=== PATIENT | male | born 1970 | race Caucasian/White ===

== ENCOUNTER → 2018-03-21 08:54 | Outpatient (CLI) | payer BC, SELFPAY ==
[2018-03-22 09:54] LABS: PSA, Screening 1.2 ng/ml (0-2.5)
== END ==
PROVIDERS: PCP Family Medicine; Visit Provider Family Medicine
DX: N40.0 Benign prostatic hyperplasia without lower urinary tract symptoms (principal); N52.9 Male erectile dysfunction, unspecified; R35.1 Nocturia; Z12.5 Encounter for screening for malignant neoplasm of prostate
CPT/HCPCS: 36415; 84153

== ENCOUNTER 2020-05-31 06:10 | Day surgery (SDC) | payer BC, SELFPAY ==
[2020-05-31 06:25] VITALS: BP 133/96; PULSE 69; RESP 16; TEMP 36.1; O2SAT 100
--- NOTE | 2020-05-31 06:48 | COLE_ITS ---
Date of service: 05/31/20 Time of Service: 07:28 Colonoscopy Report Date of procedure: 05/31/20 Pre-op diagnosis general: Colon Cancer Screening Post-op diagnosis procedure note: same Procedure: Colonoscopy Surgeon: Pat Montejo Anesthesia proc note operative: other (General/ ASA 2/Jani Villagomez, ANNA) Estimated blood loss (mL): 0 Pathology: none sent Complications: None Disposition: same day Indications: 49 y/o male with history of hyperlipidemia presents for his first colonoscopy screening pre-op. He denies a family history of colon cancer. He reports that he has been having intolerance to foods recently, which cause bloating, abdominal discomfort and diarrhea. [place] [facility] [place]. Denies bloody or black tarry stools, abdominal pain or constipation. He denies constitutional symptoms. Prep: Miralax/Dulcolax Procedure Start Time: :28 Procedure End Time: 07:48 Retraction Time: 15 minutes Findings: Normal colon Procedure Description: After informed consent was obtained the patient was taken to the procedure room and placed in a left decubitous position. Monitors were applied and a time out was done. The patients name, date of , procedure, allergies to medications and metal in their body was reviewed. The patient was then sedated. Once sedated and comfortable a rectal exam was done. External exam was normal. Internal exam revealed a normal sphincter tone and no palpable masses. I was unable to feel the prostate. The scope was then introduced and retro-flexed. No internal hemorrhoids were identified. The scope was then advanced to the cecum without difficulty. The ileocecal valve and appendiceal orifice were identified. The prep was good. The scope was then slowly retracted over 15 minutes back into the rectum. There were no polyps and no diverticula. The scope was removed and the patient was woken up and taken back to Same day surgery in stable condition. The patient tolerated the procedure well and there were no immediate complications. Follow up: The patient should follow up in 10 years unless they develop changes in bowel habits or other new gastrointestinal complaints.
--- NOTE | 2020-05-31 06:49 | W.PM.DSUDISC ---
Discharge Plan Disposition Patient Disposition: HOME Condition: Good Discharge Details Reason For Visit: colonoscopy Attending Provider: Pat Montejo Primary Care Provider: Christian Maria Home Meds and New Rx's Prescriptions: Continued sildenafil [Viagra] 100 mg tablet 100 mg PO daily prn MDD 100mg 90 Days Qty: 45 RF: 3 Flonase Sensimist 27.5 mcg/actuation spray,suspension 2 spray NEEMA DAILY RF: 0 epinephrine [EpiPen 2-Brennan] 0.3 mg/0.3 mL auto-injector 0.3 mg IM ONCE Qty: 1 RF: 1 omega-3 fatty acids [Fish Oil Concentrate] 1,000 mg capsule 1,000 mg PO DAILY RF: 0 Discontinued polyethylene glycol 3350 17 gram/dose powder 238 g PO ONCE Qty: 238 RF: 0 bisacodyl [Dulcolax (bisacodyl)] 5 mg tablet,delayed release (DR/EC) 5 mg PO ONCE Qty: 4 RF: 0 Discharge Instructions Additional Instructions: Findings: Normal colonoscopy Follow up: 10 years Please call if you develop: fevers >101.5 Nausea or Vomiting Abdominal pain that is not transient DAY SURGERY UNIT POST ENDOSCOPY INSTRUCTIONS 1. Because there will be medication in your system for the next 24 hours, you may feel a little sleepy. Your coordination will be affected. Therefore: a. Do not drive or operate dangerous equipment for 24 hours. b. Do not drink alcohol beverages for 24 hours (not even beer). c. Plan to go home and rest for the day. 2. Generally there are no restrictions on your activity after a day or so has gone by, but you may feel a bit fatigued for a few days. 3 After you arrive home you may have a light meal and return to a normal diet as you can tolerate it without feeling sick to your stomach. 4. After surgery, you may feel pain or discomfort. This should be only transient, but if it persists please contact your doctor. 5. If there are any questions regarding the findings of your procedure, please feel free to contact your doctor. 6. If you are unable to contact your doctor with a problem, contact the hospital at [phone]. 7. Continue all your regular medications unless directed otherwise. I understand the above instructions and have no questions. Signature of Patient or Responsible Adult Escort Date/Time Name of Responsible Adult Escort Signature of Nurse Date/Time Activity:: Activity as Tolerated Diet:: As Tolerated Discharge Orders Discharge Orders: Discharge Order (Routine); Ordered 05/31/20 Ordered By: Pat Montejo
[2020-05-31] MEDS: Lactated Ringers 1,000 ML 80 ML IV (06:50)
[2020-05-31 08:39] VITALS: BP 138/91; PULSE 57; RESP 16; TEMP 36; O2SAT 100
== END 2020-05-31 09:00 | disposition home or self-care (01) ==
PROVIDERS: PCP Family Medicine; Visit Provider Surgery
PROC: 0DJD8ZZ Inspection of Lower Intestinal Tract, Via Natural or Artificial Opening Endoscopic (ICD-10-PCS; CPT 45378; principal; 2020-05-31 07:30)
DX: Z12.11 Encounter for screening for malignant neoplasm of colon (principal); E78.5 Hyperlipidemia, unspecified
CPT/HCPCS: 45378; J2704

== ENCOUNTER 2020-07-11 00:10 | Emergency (ER) | payer BC, SELFPAY ==
[2020-07-11 00:13] VITALS: BP 120/81; PULSE 81; RESP 16; TEMP 36.7; O2SAT 96
--- NOTE | 2020-07-11 00:14 | W.ED.GENAD ---
Discharge Plan Disposition Patient Disposition: HOME Condition: Good Discharge Details Clinical Impression: Dyspnea and respiratory abnormalities Primary Care Provider: Christian Maria ED Provider: Delfino Wilks Meds and New Rx's Prescriptions: Continued sildenafil [Viagra] 100 mg tablet 100 mg PO daily prn MDD 100mg 90 Days Qty: 45 RF: 3 Flonase Sensimist 27.5 mcg/actuation spray,suspension 2 spray NEEMA DAILY RF: 0 epinephrine [EpiPen 2-Brennan] 0.3 mg/0.3 mL auto-injector 0.3 mg IM ONCE Qty: 1 RF: 1 omega-3 fatty acids [Fish Oil Concentrate] 1,000 mg capsule 1,000 mg PO DAILY RF: 0 Discharge Instructions Additional Instructions: Symptoms described tonight sound related to sleep apnea or severe reflux. They do not sound related to asthma, infection, heart failure, blood clots. Vitals and oxygenation here normal. Exam normal. Talk to your girlfriend about snoring and breathing pattern at night. If abnormal consider sleep study. Follow up with PCP. Return to ED for chest pain, persistent trouble breathing, fainting Referrals: Christian Maria [Primary Care Provider] - Medical Decision Making This would not appear to be a life threat. Given the resolution of symptoms relatively quickly with normal vitals, pulse ox, exam here this does not fit something like CHF, KS, asthma, pneumonia, PTX, PE. Suspect more likely related to sleep apnea or reflux with laryngospasm. His use of alcohol tonight may have contributed to either. May also be possible he simple inhaled secretions while sleeping triggering a choking episode. Patient reassured. Will have him discuss with girlfriend his snoring/breathing patterns at night. If seems abnormal can follow up with PCP for possible sleep study. Return to ED for chest pain/pressure, persistent shortness of breath, fainting, leg pain/swelling. HPI General Mode of arrival: ambulatory. Date/Time Provider Initiated Documentation: 07/11/20 00:14. Limitations to Documentation: no limitations. Information obtained by: patient, RN notes reviewed and old records reviewed. HPI Narrative: Patient presents to ED after waking up gasping for air. He now feels fine. He has never done this previously. He did have a few drinks tonight. He does snore on a regular basis. He does not report being told he breathes funny at night. He denies having any chest pain or pressure. He has some post nasal drip. He denies cough, fever, wheezing. He has no leg pain or swelling. Related Data Home Medications Medication Instructions Recorded Confirmed sildenafil 100 mg tablet 100 mg PO daily prn 90 Days #45 01/29/19 07/11/20 tab MDD 100mg epinephrine 0.3 mg/0.3 mL 0.3 mg IM ONCE #1 syringe 02/16/20 07/11/20 injection, auto-injector fluticasone furoate 27.5 2 spray NEEMA DAILY ml 02/16/20 07/11/20 mcg/actuation nasal spray,suspension omega-3 fatty acids 1,000 mg 1,000 mg PO DAILY 05/07/20 07/11/20 capsule Previous Rx's Medication Instructions Recorded sildenafil 100 mg tablet 100 mg PO daily prn 90 Days #45 01/29/19 tab MDD 100mg epinephrine 0.3 mg/0.3 mL 0.3 mg IM ONCE #1 syringe 02/16/20 injection, auto-injector Allergies Allergy/AdvReac Type Severity Reaction Status Date / Time codeine AdvReac Intermediate Jittery, Unverified 07/11/20 00:16 insomnia Review of Systems Narrative: As documented in HPI otherwise negative as below. Const: no fever, chills, weakness Resp: no cough, pleuritic pain CV: no CP, diaphoresis, edema, syncope GI: no abdominal pain, nausea, vomiting, diarrhea Neuro: no headache, numbness, focal weakness, confusion COUNTS INCLUDE 234 BEDS AT THE [facility] Medical History History of depression Hx of hyperlipidemia Family History Father Lymphoma Melanoma Maternal Grandfather , 85 Colon cancer Mother No problems noted. Maternal Grandmother , 82 Diabetes Heart disease Asthma Sister Breast cancer Sister No problems noted. Sister No problems noted. Sister No problems noted. Paternal Grandfather , 38 No problems noted. Paternal Grandmother , 80 No problems noted. Son No problems noted. Daughter No problems noted. Brother No problems noted. Social History Smoking/Tobacco Use Status: Never Smoking risk assessment performed?: Yes Alcohol Intake: current Alcohol Intake frequency: 0-2 drinks per day Alcohol type: beer Drug use: Occasionally Substance use type: marijuana Details: alcohol: t-2, couple beers. marijuana: t-21, bowl Caregiver/Support person: No Household members: significant other Housing: house Communication Needs: None Do you need help understanding health information?: Rarely current occupation: TEACHER Pets and animals: No Sexually active: Yes Do you think of yourself as: straight/heterosexual Current gender identity: male What is your relationship status?: living with partner How often do you talk on the phone with friends or family?: once per week How often do you get together with friends or relatives?: three or more times per week How often do you attend roman catholic or zoroastrianism services?: 1-3 times per year Do you belong to any clubs or organized social groups?: yes Panel score (0-1 are the most socially isolated patients): 3 What type of physical activity do you participate in: decline to answer Duration: 15-30 minutes/day Frequency: 3-4 times per week Rosy/Buddhism: Gnosticism Special rosy needs: No Seatbelt use: always Helmet use: Yes Helmet use: always Drive intox or ride w/intox cdl company driver: No Do you feel safe at home: Yes Do you feel safe in your relationship?: Yes Exam Narrative Exam Narrative: Const: WDWN male in NAD. Neck: Supple. Trachea midline. Lungs: Normal respiratory effort. Lungs are clear. Cor: RRR without murmur/gallop. GI: Soft. NT/ND. No guarding or rebound. Neuro: A+O x 3. Normal speech, mentation, gait. Cranial nerves II - XII grossly intact. No gross motor or sensory deficit. Ext: No C/C/E. No calf tenderness. Skin: Warm and dry without rash.
== END 2020-07-11 00:45 | disposition home or self-care (01) ==
PROVIDERS: Emergency Provider Emergency Medicine; PCP Family Medicine
DX: R06.00 Dyspnea, unspecified (principal); R06.83 Snoring; R06.89 Other abnormalities of breathing
CPT/HCPCS: 99282; 99283

== ENCOUNTER 2021-03-07 10:40 | Outpatient (CLI) | payer BC, SELFPAY ==
[2021-03-07 12:56] LABS: ALT 37 U/L (16-63); AST 22 U/L (15-37); Albumin 4.1 g/dL (3.4-5.0); Alkaline Phosphatase 85 U/L (46-116); Anion Gap 9.8 mmol/L (3-11); BUN 11 mg/dL (7-18); Bilirubin, Total 0.9 mg/dL (0.2-1.0); CO2 28.2 mmol/L (21.0-32.0); Calculated LDL 168 mg/dL (<100); Chloride 103 mmol/L (98-107); Cholesterol 259 mg/dL (<200); Glucose 95 mg/dL (74-106); HDL Cholesterol 72 mg/dL (40-60); Potassium 4.2 mmol/L (3.5-5.1); Sodium 141 mmol/L (136-145); Total Protein 7.5 g/dL (6.4-8.2); Triglyceride 98 mg/dL (<150)
[2021-03-07 13:43] LABS: Hemoglobin A1C 5.5 % (<5.7)
[2021-03-07 16:57] LABS: PSA, Screening 1.2 ng/mL (0.0-3.5)
== END 2021-03-07 10:41 | disposition home or self-care (01) ==
LOC: LOS 10:41
PROVIDERS: PCP Nurse Practitioner Family; Visit Provider Nurse Practitioner Family
DX: I10 Essential (primary) hypertension (principal); Z13.1 Encounter for screening for diabetes mellitus; Z13.220 Encounter for screening for lipoid disorders; Z12.5 Encounter for screening for malignant neoplasm of prostate
CPT/HCPCS: 36415; 80053; 80061; 84153; 83036

== ENCOUNTER 2021-04-16 10:26 | Emergency (ER) | payer BC, SELFPAY ==
--- NOTE | 2021-04-16 10:30 | DI.RAD_ITS ---
Exam(s) XR ABDOMEN FLAT UPRIGHT EXAM: 2D digital imaging was performed. CLINICAL HISTORY: constipation, bloating. COMPARISON: No exams were available for comparison TECHNIQUE: Supine and uprightSupine and Lateral views of the abdomen was performed. FINDINGS: LUNG BASES: Clear. BOWEL GAS PATTERN: Nondistended. FREE AIR: None. CALCIFICATIONS: No radiopaque calcifications. OSSEOUS STRUCTURES: Normal for age. OTHER FINDINGS: None. IMPRESSION: No evidence of an acute abdomen. DATA REPOSITORY: RADIATION DOSE DELIVERED:
[2021-04-16 10:33] VITALS: BP 137/83; PULSE 74; RESP 14; TEMP 36.6; O2SAT 99
--- NOTE | 2021-04-16 10:44 | ED.GENADUL_ITS ---
Discharge Plan Disposition Patient Disposition: HOME Condition: Improving Discharge Details Clinical Impression: Constipation Primary Care Provider: Seth Razo ED Provider: Branden Ragland Home Meds and New Rx's Prescriptions: New docusate sodium [Colace] 100 mg capsule 200 mg PO QHS PRN (Reason: constipation) 7 Days Qty: 14 RF: 0 Continued sildenafil [Viagra] 100 mg tablet 100 mg PO daily prn MDD 100mg 90 Days Qty: 45 RF: 3 Flonase Sensimist 27.5 mcg/actuation spray,suspension 2 spray NEEMA DAILY RF: 0 epinephrine [EpiPen 2-Brennan] 0.3 mg/0.3 mL auto-injector 0.3 mg IM ONCE Qty: 1 RF: 1 lisinopril 5 mg tablet 5 mg PO DAILY Qty: 90 RF: 4 trazodone 50 mg tablet 50 mg PO QHS PRN (Reason: sleep) Qty: 60 RF: 2 omega-3 fatty acids [Fish Oil Concentrate] 1,000 mg capsule 1,000 mg PO DAILY RF: 0 Discharge Instructions Instructions: Constipation (ED) Additional Instructions: Acute concerns please take Colace 2 tablets at bedtime as needed for constipation up to 1 week. Continue high-fiber diet. Continue your regularly prescribed medications. Return to the ER if you develop fever, vomiting, or any other acute concerns. Medical Decision Making 50-year-old male presents with 10+ days of bloating, feeling constipated. He has not had any solid bowel movement for that timeframe. No fever. No vomiting. Patient's vital signs are unremarkable. Rectal examination without mass or stool ball. Patient referred for x-ray which reveals large amount of stool retained, no evidence of obstruction. He was given Fleet enema with scant production of stool. Consistent with constipation. I will place him on Colace 2 tablets at night. He may perform further enemas at home. Understands indications to return to the ER. HPI General Mode of arrival: ambulatory . Date/Time Provider Initiated Documentation: 04/16/21 10:27 . Limitations to Documentation: no limitations . Information obtained by: patient . History of Present Illness 50 year old M presents to the emergency department with the chief complaint of Constipation and bloating, described as moderate, Quality is described as dull, and is localized to the abdomen. Patient reports no radiation. Patient started experiencing this day(s) and it has been intermittent. No relieving factors improve symptom(s), No exacerbating factors reported . Patient notes denies fever/chills, loss of appetite and nausea/vomiting. Patient did receive the following treatments prior to arrival, none Related Data Home Medications Medication Instructions Recorded Confirmed sildenafil 100 mg tablet 100 mg PO daily prn 90 Days #45 01/29/19 04/16/21 tab MDD 100mg fluticasone furoate 27.5 2 spray NEEMA DAILY ml 02/16/20 04/16/21 mcg/actuation nasal spray,suspension omega-3 fatty acids 1,000 mg 1,000 mg PO DAILY 05/07/20 04/16/21 capsule epinephrine 0.3 mg/0.3 mL 0.3 mg IM ONCE #1 syringe 02/18/21 04/16/21 injection, auto-injector lisinopril 5 mg tablet 5 mg PO DAILY #90 tab 02/18/21 04/16/21 trazodone 50 mg tablet 50 mg PO QHS PRN #60 tab 02/18/21 04/16/21 docusate sodium [Colace] 200 mg PO QHS PRN 7 Days #14 cap 04/16/21 Previous Rx's Medication Instructions Recorded sildenafil 100 mg tablet 100 mg PO daily prn 90 Days #45 01/29/19 tab MDD 100mg epinephrine 0.3 mg/0.3 mL 0.3 mg IM ONCE #1 syringe 02/18/21 injection, auto-injector lisinopril 5 mg tablet 5 mg PO DAILY #90 tab 02/18/21 trazodone 50 mg tablet 50 mg PO QHS PRN #60 tab 02/18/21 docusate sodium [Colace] 200 mg PO QHS PRN 7 Days #14 cap 04/16/21 Allergies Allergy/AdvReac Type Severity Reaction Status Date / Time codeine AdvReac Intermediate Jittery, Verified 04/16/21 10:36 insomnia General Stated Complaint: Abd Prob DORI: 3 Review of Systems Narrative: Denies fever or vomiting, passing gas, stop drinking but no withdrawal symptoms. No bloody stool. 8 systems reviewed and otherwise negative [facility] Medical History Family history of malignant melanoma of skin Father, Stage 4. History of depression Hx of hyperlipidemia Family History Father , 91 Lymphoma Melanoma Diabetes Stroke Maternal Grandfather , 85 Colon cancer Mother No problems noted. Maternal Grandmother , 82 Diabetes Heart disease Asthma Sister Breast cancer Sister No problems noted. Sister No problems noted. Sister No problems noted. Paternal Grandfather , 38 No problems noted. Paternal Grandmother , 80 No problems noted. Son No problems noted. Daughter No problems noted. Brother No problems noted. Social History Smoking/Tobacco Use Status: Never Second Hand Exposure: No Smoking risk assessment performed?: Yes Alcohol Intake: former Drug use: Occasionally Substance use type: marijuana Details: alcohol: t-2, couple beers. marijuana: t-21, bowl current occupation: TEACHER Pets and animals: Yes Pets and animals: cat(s) Sexually active: Yes Do you think of yourself as: straight/heterosexual Current gender identity: male What is your relationship status?: How often do you talk on the phone with friends or family?: once per week How often do you get together with friends or relatives?: three or more times per week How often do you attend buddhist or baptism services?: decline to answer Do you belong to any clubs or organized social groups?: no Panel score (0-1 are the most socially isolated patients): 1 What type of physical activity do you participate in: walking and bicycling Duration: 30-45 minutes/day Frequency: 1-2 times per week Rosy/Hindu: Baptism Special rosy needs: No Seatbelt use: always Helmet use: Yes Helmet use: always Drive intox or ride w/intox commercial driver's license driver: No Do you feel safe at home: Yes Do you feel safe in your relationship?: Yes Exam Narrative Exam Narrative: GEN: awake, alert, oriented 3. Pleasant, well groomed, interactive. HEAD: Normocephalic, atraumatic ENT: Mucous membranes moist, oropharynx unremarkable, External ear exam unremarkable EYES: PERRL, EOMI NECK: Full ROM, no FARIDA, no menigismus CHEST/RESP: Nontender, clear to auscultation bilateral, no wheeze/rhonchi/rales CARDIOVASCULAR: RRR, no murmur, rub xavi. 2+ Rad pulse bilateral ABDOMEN: Soft, nontender, no mass. +Bowel sounds, rectal examination with normal rectal tone, no mass or stool ball. Brown stool present. EXT: Full ROM, no edema, no rash Neuro: Grossly normal neurologic exam, conversant, interactive. Psych: Speech fluent, thoughts congruent, affect normal Course Vital Signs Vital signs: Vital Signs Temperature 36.6 C 04/16/21 10:33 Pulse 74 04/16/21 10:33 Respiratory Rate 14 04/16/21 10:33 Blood Pressure 137/83 04/16/21 10:33 Pulse Oximetry 99 04/16/21 10:33 Temperature 36.6 C 04/16/21 10:33 Temperature Source Skin 04/16/21 10:33 Pulse 74 04/16/21 10:33 Respiratory Rate 14 04/16/21 10:33 Respiratory Effort Non-Labored 04/16/21 10:37 Blood Pressure 137/83 04/16/21 10:33 Blood Pressure Position Sitting 04/16/21 10:33 Pulse Oximetry 99 04/16/21 10:33 Oxygen Delivery Method Room Air 04/16/21 10:33 Oxygen Flow Rate 0 04/16/21 10:33 Pain Level 4 04/16/21 10:33
--- NOTE | 2021-04-16 12:37 | DI.VRAD_ITS ---
PROCEDURE INFORMATION: Exam: XR Abdomen Exam date and time: 04/16/2021 10:45 AM Age: 50 years old Clinical indication: Abdominal pain; Patient HX: Constipation, bloating TECHNIQUE: Imaging protocol: XR of the abdomen. Views: 2 Views. Upright and supine views. COMPARISON: No relevant prior studies available. FINDINGS: Gastrointestinal tract: Normal. No bowel dilation. Intraperitoneal space: Normal. No free air. Bones/joints: Unremarkable for age. IMPRESSION: No acute findings. Dictated and Authenticated by: Juwan Kahn MD. Ordering:SUJIT Otero MD
== END 2021-04-16 12:46 | disposition home or self-care (01) ==
PROVIDERS: Emergency Provider Emergency Medicine; PCP Nurse Practitioner Family
DX: K59.00 Constipation, unspecified (principal)
CPT/HCPCS: 99283; 74019

== ENCOUNTER 2021-09-15 02:03 | Outpatient (CLI) | payer BC, SELFPAY ==
--- NOTE | 2021-09-15 07:00 | DI.RAD_ITS ---
Exam(s) XR HIP LT COMPLETE AP PELVIS EXAM: XR HIP LT COMPLETE AP PELVIS CLINICAL HISTORY: Left hip pain continued for weeks getting worse,[id number]. TECHNIQUE: 2D digital imaging was performed. COMPARISON: CR,XR XR ABDOMEN FLAT UPRIGHT from 04/16/2021 FINDINGS: No evidence of pelvic nor hip fracture. No evidence of avascular necrosis the hips. No osseous lesi ons. Additional views of the left hip reveal no hip joint space narrowing and no osteophytes. No evidence of degenerative subarticular cysts. Bone density is normal. No osseous lesions. IMPRESSION: No significant radiographic findings. Unchanged appearance of the hips when compared to abdominal pl ain films of April 2021. DATA REPOSITORY: RADIATION DOSE DELIVERED:
[2021-09-16 23:00] LABS: Campylobacter PCR Negative (Negative); Salmonella PCR Negative (Negative); Shiga Toxin PCR Negative (Negative); Shigella/Enteroinvasive Ecoli Negative (Negative)
== END 2021-09-15 02:23 ==
PROVIDERS: PCP Nurse Practitioner Family; Visit Provider Nurse Practitioner Family
DX: M25.552 Pain in left hip (principal); R19.7 Diarrhea, unspecified
CPT/HCPCS: 87505; 73502; 87177

== ENCOUNTER 2022-08-31 02:27 | Outpatient (CLI) | payer BC, SELFPAY ==
[2022-08-31 15:35] LABS: Potassium 3.6 mmol/L (3.5-5.1)
== END 2022-08-31 02:28 | disposition home or self-care (01) ==
LOC: LBO 02:27
PROVIDERS: PCP Nurse Practitioner Family; Visit Provider Nurse Practitioner Family
DX: I10 Essential (primary) hypertension (principal)
CPT/HCPCS: 36415; 82565; 84132

== ENCOUNTER 2024-04-04 13:58 | Outpatient (CLI) | payer BC, SELFPAY ==
[2024-04-04 10:51] LABS: Hemoglobin A1C 5.4 % (<5.7)
[2024-04-04 11:04] LABS: Calculated LDL 138 mg/dL (<100); Cholesterol 220 mg/dL (<200); Estimated GFR 89.44 (mL/min/1.73m2); HDL Cholesterol 65 mg/dL (40-60); TSH (W/Ref FT4) 1.63 uIU/mL (0.36-3.74); Triglyceride 89 mg/dL (<150)
== END 2024-04-04 13:59 | disposition home or self-care (01) ==
LOC: LBO 13:58
PROVIDERS: PCP Nurse Practitioner Family; Visit Provider Nurse Practitioner Family
DX: Z13.29 Encounter for screening for other suspected endocrine disorder (principal); I10 Essential (primary) hypertension; Z13.220 Encounter for screening for lipoid disorders; E78.2 Mixed hyperlipidemia; Z13.1 Encounter for screening for diabetes mellitus
CPT/HCPCS: 36415; 80061; 82565; 83036; 84132; 84443

== ENCOUNTER 2025-05-01 00:24 | Outpatient (CLI) | payer BC, SELFPAY ==
[2025-05-01 14:26] LABS: Anion Gap 7.1 mmol/L (3-11); BUN 10 mg/dL (7-18); CO2 29.9 mmol/L (21.0-32.0); Calcium 8.4 mg/dL (8.5-10.1); Calculated LDL 138 mg/dL (<100); Chloride 103 mmol/L (98-107); Cholesterol 223 mg/dL (<200); Estimated GFR 88.88 (mL/min/1.73m2); Glucose 101 mg/dL (74-106); HDL Cholesterol 47 mg/dL (>or=40); Potassium 4.4 mmol/L (3.5-5.1); Sodium 140 mmol/L (136-145); Triglyceride 194 mg/dL (<150)
[2025-05-01 16:23] LABS: Hemoglobin A1C 5.3 % (<5.7)
[2025-05-01 23:04] LABS: PSA, Screening 1.9 ng/mL (<=3.5)
== END 2025-05-01 00:25 | disposition home or self-care (01) ==
LOC: LOS 00:24
PROVIDERS: PCP Nurse Practitioner Family; Visit Provider Nurse Practitioner Family
DX: Z13.1 Encounter for screening for diabetes mellitus (principal); Z12.5 Encounter for screening for malignant neoplasm of prostate; I10 Essential (primary) hypertension; Z13.220 Encounter for screening for lipoid disorders
CPT/HCPCS: 36415; 80048; 80061; 84153; 83036